=== PATIENT | male | born 1990 | race African-American/Black ===

== ENCOUNTER 2020-06-13 02:58 | Emergency (ER) | payer SELFPAY ==
[~2020-06-13] VITALS: Ht 177.8 cm; Wt 94.5 kg
[~2020-06-13 02:58] MED LIST: ZOFRAN4 MG/TAB PO
[2020-06-13] MEDS ORDERED: NAPROXEN500 MG PO (04:33)
[2020-06-13] MEDS ORDERED: CYCLOBENZAPRINE10 MG PO (04:33)
[2020-06-13 04:50] VITALS: BP 134/80
== END 2020-06-13 04:50 | disposition home or self-care (01) | DRG 552 ==
LOC: ED 02:58
DX: M47.814 Spondylosis without myelopathy or radiculopathy, thoracic region (principal)

== ENCOUNTER 2020-07-13 04:41 | Emergency (ER) | payer SELFPAY ==
[~2020-07-13 04:41] MED LIST changes: +CYCLOBENZAPRINE10 MG PO; +NAPROXEN500 MG PO
[2020-07-13] MEDS ORDERED: KEFLEX500 M1 PO (05:24)
[2020-07-13 06:20] VITALS: BP 139/60
== END 2020-07-13 06:21 | disposition home or self-care (01) | DRG 914 ==
LOC: ED 04:41
DX: S91.342A Puncture wound with foreign body, left foot, initial encounter (principal); W26.8XXA Contact with other sharp object(s), not elsewhere classified, initial encounter; Y92.009 Unspecified place in unspecified non-institutional (private) residence as the place of occurrence of the external cause

== ENCOUNTER 2021-03-15 20:14 | Emergency (ER) | payer SELFPAY ==
[~2021-03-15] VITALS: Ht 177.8 cm; Wt 89.0 kg
[~2021-03-15 20:14] MED LIST changes: +KEFLEX500 M1 PO
[2021-03-15 20:49] LABS: URINE BILIRUBIN - DIPSTICK NEGATIVE (NEGATIVE); URINE BLOOD DIPSTICK NEGATIVE (NEGATIVE); URINE COLOR YELLOW; URINE GLUCOSE - DIPSTICK NEGATIVE (NEGATIVE); URINE KETONE NEGATIVE (NEGATIVE); URINE LEUK ESTERASE NEGATIVE (NEGATIVE); URINE PROTEIN - DIPSTICK NEGATIVE (NEG-TRACE); URINE SPECIFIC GRAVITY >=1.030; URINE UROBILINOGEN - DIPSTICK 0.2 E.U./dL (0.2)
[2021-03-15 20:50] LABS: URINE NITRITE - DIPSTICK NEGATIVE (Negative)
[2021-03-15 20:50] LABS: HEMATOCRIT 42.8 % (39.0-50.0); IMMATURE GRANULOCYTES 0.3 % (0.0-5.0); MEAN CORPUSCULAR HGB 30.8 pG CALC (26.0-32.0); MEAN CORPUSCULAR HGB CONC 33.4 g/dL CAL (32.0-36.0); NEUT# 4.83 thou/uL (1.82-7.42); RED BLOOD COUNT 4.65 mill/uL (4.70-6.10); RED CELL DISTRI WIDTH 14.2 % (11.5-15.5)
[2021-03-15 21:00] LABS: HEMOGLOBIN 14.3 g/dl (14.0-18.0)
[2021-03-15 21:03] LABS: ALBUMIN 4.8 g/dL (3.2-5.0); ALKALINE PHOSPHATASE 71 u/l (38-126); AMYLASE 106 u/l (30-110); ANION GAP 14 (6-22 (CALC)); BUN 16 mg/dL (9-20); BUN/CREATININE RATIO 13 (12-20 (CALC)); CARBON DIOXIDE 28 mmol/l (22-30); CHLORIDE 104 mmol/l (95-108); CREATININE 1.2 mg/dL (0.7-1.3); GFR > 60 ML/MIN (>=60 (CALC)); GFR FOR AFR.AMER. > 60 ML/MIN (>=60 (CALC)); LIPASE 43 u/l (23-300); POTASSIUM 3.9 mmol/l (3.5-5.1); SODIUM 142 mmol/l (137-146); TOTAL PROTEIN 8.7 g/dL (6.3-8.2)
[2021-03-15 21:07] LABS: BILIRUBIN, TOTAL 0.5 mg/dL (0.0-1.4); SGOT/AST 35 u/l (17-59)
[2021-03-15 21:15] LABS: MYOGLOBIN 33 ng/mL (0 - 121)
[2021-03-15] MEDS ORDERED: ULTRAM50 M1 PO (21:56)
[2021-03-15] MEDS ORDERED: PREVACID30 M3 PO (21:56)
[2021-03-15] MEDS ORDERED: ONDANSETRON4 MG PO (21:56)
[2021-03-15 22:20] VITALS: BP 123/69
== END 2021-03-15 22:20 | disposition home or self-care (01) | DRG 392 ==
LOC: ED 20:14
PROVIDERS: Emergency Medicine
DX: K52.9 Noninfective gastroenteritis and colitis, unspecified (principal)
CPT/HCPCS: Q9967; S0164

== ENCOUNTER 2024-06-02 10:34 | Emergency (ER) | payer SELFPAY ==
[~2024-06-02] VITALS: Ht 177.8 cm; Wt 102.3 kg
[~2024-06-02 10:34] MED LIST changes: +ONDANSETRON4 MG PO; +PREVACID30 M3 PO; +ULTRAM50 M1 PO
[2024-06-02 11:01] VITALS: BP 130/72
[2024-06-02 11:16] VITALS: BP 140/94
[2024-06-02 11:31] VITALS: BP 136/95
[2024-06-02 11:46] VITALS: BP 139/90
[2024-06-02] MEDS ORDERED: KETOROLAC TROMETHAMINE 30 MG/ML SDV IM ONE (12:00)
[2024-06-02 12:01] VITALS: BP 157/94
[2024-06-02] MEDS ORDERED: IBUPROFEN600 MG PO (12:04)
[2024-06-02 12:06] VITALS: BP 157/94
== END 2024-06-02 12:16 | disposition home or self-care (01) | DRG 563 ==
LOC: ED 10:34
DX: S56.012A Strain of flexor muscle, fascia and tendon of left thumb at forearm level, initial encounter (principal); S56.011A Strain of flexor muscle, fascia and tendon of right thumb at forearm level, initial encounter; W18.39XA Other fall on same level, initial encounter; Y92.009 Unspecified place in unspecified non-institutional (private) residence as the place of occurrence of the external cause